=== PATIENT | male | born 1990 | race Caucasian/White ===

== ENCOUNTER 2022-09-21 19:28 | Emergency (ER) | payer SELFPAY | END 2022-09-21 22:31 | disposition home or self-care (01) | LOC: ERS 19:28 | DX: S90.01XA Contusion of right ankle, initial encounter (principal); J45.909 Unspecified asthma, uncomplicated; W22.8XXA Striking against or struck by other objects, initial encounter; Z79.899 Other long term (current) drug therapy ==